=== PATIENT | male | born 1930 | race Caucasian/White ===

== ENCOUNTER 2017-01-09 10:30 | Day surgery (SDC) | payer OTHER, BC ==
[2017-01-09] MEDS ORDERED: ACETAMINOPHEN 325 MG TABLET (FP) ONE (11:29)
[2017-01-09] MEDS ORDERED: ACETAMINOPHEN 325 MG TABLET (FP) PO ONE (11:30)
[2017-01-09] MEDS ORDERED: IMMUNE GLOB,GAM CAPRYLATE(IGG) 20 GM IVPB ONE (12:00)
[2017-01-09 15:42] VITALS: PULSE 60
[2017-01-09 16:53] VITALS: BP 135/71
[2017-01-09 17:00] VITALS: TEMP 97.6
== END 2017-01-09 16:40 | disposition home or self-care (01) ==
LOC: JINFUSION 10:30
PROVIDERS: ATTEND Psychiatry & Neurology Psychiatry
PROC: 3E033GC Introduction of Other Therapeutic Substance into Peripheral Vein, Percutaneous Approach (ICD-10-PCS; principal; 2017-01-09)
DX: G61.81 Chronic inflammatory demyelinating polyneuritis (principal)
CPT/HCPCS: 96365; 96366; J1561; J1459

== ENCOUNTER 2017-01-10 10:24 | Day surgery (SDC) | payer OTHER, BC ==
[~2017-01-10 10:24] MED LIST: IMMUNE GLOBULIN IVPB SCH
[2017-01-10] MEDS ORDERED: IMMUNE GLOBULIN IVPB ONE (10:59)
[2017-01-10] MEDS ORDERED: diphenhydrAMINE HCL 25 MG CAPSULE (FP) PO SCH (12:45)
[2017-01-10] MEDS ORDERED: ACETAMINOPHEN 325 MG TABLET (FP) PO SCH (12:45)
[2017-01-10 19:19] VITALS: BP 127/54; PULSE 62; TEMP 98
== END 2017-01-10 19:45 | disposition home or self-care (01) ==
LOC: JINFUSION 10:24 → J7W 10:26 → JINFUSION 19:45
PROVIDERS: ATTEND Psychiatry & Neurology Psychiatry
PROC: 3E033GC Introduction of Other Therapeutic Substance into Peripheral Vein, Percutaneous Approach (ICD-10-PCS; principal; 2017-01-10)
DX: G61.81 Chronic inflammatory demyelinating polyneuritis (principal)
CPT/HCPCS: 96365; 96366; J1561

== ENCOUNTER 2017-01-11 10:39 | Day surgery (SDC) | payer OTHER, BC ==
[2017-01-11] MEDS ORDERED: ACETAMINOPHEN 325 MG TABLET (FP) PO ONE (11:30)
[2017-01-11] MEDS ORDERED: diphenhydrAMINE HCL 25 MG CAPSULE (FP) PO ONE (11:45)
[2017-01-11] MEDS ORDERED: IMMUNE GLOBULIN IVPB ONE (12:00)
[2017-01-11 12:55] VITALS: PULSE 59
[2017-01-11 13:51] VITALS: TEMP 98.1
[2017-01-11 18:41] VITALS: BP 137/71
== END 2017-01-11 18:53 | disposition home or self-care (01) ==
LOC: JINFUSION 10:39 → J7W 10:40 → JINFUSION 18:53
PROVIDERS: ATTEND Psychiatry & Neurology Psychiatry
PROC: 3E033GC Introduction of Other Therapeutic Substance into Peripheral Vein, Percutaneous Approach (ICD-10-PCS; principal; 2017-01-11)
DX: G61.81 Chronic inflammatory demyelinating polyneuritis (principal)
CPT/HCPCS: 96365; 96366; J1561

== ENCOUNTER 2018-03-24 10:35 | Day surgery (SDC) | payer OTHER, BC ==
[2018-03-24] MEDS ORDERED: ACETAMINOPHEN 325 MG TABLET (FP) ONE (10:55)
[2018-03-24] MEDS ORDERED: diphenhydrAMINE HCL 25 MG CAPSULE (FP) PO ONE ×2 (10:55)
[2018-03-24] MEDS ORDERED: ACETAMINOPHEN 325 MG TABLET (FP) PO ONE (10:55)
[2018-03-24] MEDS ORDERED: IMMUNE GLOB,GAM CAPRYLATE(IGG) 60 GM/600 ML VIA IVPB SCH (11:15)
[2018-03-24 11:28] LABS: ANION GAP 8 MMOL/L (8-16); BLOOD UREA NITROGEN 33 mg/dL (7-18); CALCIUM 8.7 mg/dL (8.5-10.1); CHLORIDE 107 mmol/L (98-107); CO2 28 mmol/L (21-32); CREATININE 1.8 mg/dL (0.55-1.3); GLUCOSE,RANDOM 82 mg/dL (74-106); POTASSIUM 4.2 mmol/L (3.5-5.1); SODIUM 142 mmol/L (136-145)
[2018-03-24 14:45] VITALS: TEMP 97.6
[2018-03-24 16:33] VITALS: BP 150/70; PULSE 64
== END 2018-03-24 16:20 | disposition home or self-care (01) ==
LOC: JINFUSION 10:35
PROVIDERS: ATTEND Psychiatry & Neurology Psychiatry
PROC: 3E033GC Introduction of Other Therapeutic Substance into Peripheral Vein, Percutaneous Approach (ICD-10-PCS; principal; 2018-03-24)
DX: G61.81 Chronic inflammatory demyelinating polyneuritis (principal)
CPT/HCPCS: 36415; 80048; 96365; 96366; J1561

== ENCOUNTER 2018-03-25 09:16 | Day surgery (SDC) | payer OTHER, BC ==
[2018-03-25] MEDS ORDERED: diphenhydrAMINE HCL 25 MG CAPSULE (FP) PO ONE ×2 (09:45→09:50)
[2018-03-25] MEDS ORDERED: ACETAMINOPHEN 325 MG TABLET (FP) PO ONE (09:45)
[2018-03-25] MEDS ORDERED: IMMUNE GLOB,GAM CAPRYLATE(IGG) 60 GM/600 ML VIA IVPB ONE (09:45)
[2018-03-25] MEDS ORDERED: ACETAMINOPHEN 325 MG TABLET (FP) ONE (09:51)
[2018-03-25] MEDS ORDERED: GLY IVPB ONE (10:15)
[2018-03-25] MEDS ORDERED: IMMUNE GLOBUL IVPB ONE (10:15)
[2018-03-25] MEDS ORDERED: IGA AVG IVPB ONE (10:15)
[2018-03-25 14:20] VITALS: PULSE 60
[2018-03-25 15:00] VITALS: BP 126/68; TEMP 97.6
== END 2018-03-25 15:05 | disposition home or self-care (01) ==
LOC: JINFUSION 09:16
PROVIDERS: ATTEND Psychiatry & Neurology Psychiatry
PROC: 3E033GC Introduction of Other Therapeutic Substance into Peripheral Vein, Percutaneous Approach (ICD-10-PCS; principal; 2018-03-25)
DX: G61.81 Chronic inflammatory demyelinating polyneuritis (principal)
CPT/HCPCS: 96365; 96366; J1561